=== PATIENT | female | born 1965 | race American Indian/Alaskan Native ===

== ENCOUNTER 2017-10-02 11:08 | Outpatient (CLI) | payer BC ==
--- NOTE | 2017-10-02 14:09 | XRay Report ---
XRAY BILATERAL KNEE FOUR VIEWS EACH: 10/02/17 11:08:00 CLINICAL: Bilateral knee pain. FINDINGS: Right: Mild narrowing of the medial joint space with tiny osteophytes. Slight widening of the lateral joint space. Patellofemoral joint arthritis with small osteophytes. A quadriceps insertion enthesophyte. No fracture or dislocation. No joint effusion. Normal soft tissues. Left: Normal medial and lateral joint spaces. However, tiny medial osteophytes. Tiny patellofemoral joint osteophytes. A quadriceps insertion enthesophyte. No fracture or dislocation. No joint effusion.Normal soft tissues. 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 Osseous process of the left patellofemoral joint. Bilateral quadriceps enthesopathy.
== END 2017-10-02 11:09 | disposition home or self-care (01) ==
LOC: SPVIMAG 11:08
PROVIDERS: ATTEND Orthopaedic Surgery Sports Medicine
DX: M17.11 Unilateral primary osteoarthritis, right knee (principal); M76.892 Other specified enthesopathies of left lower limb, excluding foot; M76.891 Other specified enthesopathies of right lower limb, excluding foot

== ENCOUNTER 2018-01-05 12:39 | Outpatient (CLI) | payer OTHER ==
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
== END 2018-01-05 12:40 | disposition home or self-care (01) ==
LOC: SPVIMAG 12:39
PROVIDERS: ATTEND Orthopaedic Surgery Sports Medicine
DX: M19.031 Primary osteoarthritis, right wrist (principal); M18.9 Osteoarthritis of first carpometacarpal joint, unspecified; V89.2XXD Person injured in unspecified motor-vehicle accident, traffic, subsequent encounter